=== PATIENT | male | born 1985 | race Caucasian/White ===

== ENCOUNTER 2018-10-06 09:52 | Emergency (ER) | payer SELFPAY ==
[~2018-10-06] VITALS: Ht 170.2 cm; Wt 95.0 kg
[2018-10-06] MEDS ORDERED: HYDROCODONE/ACETAMINOPHEN 5/325MG TABLET PO ONE (10:45)
[2018-10-06] MEDS ORDERED: ONDANSETRON 4MG ODT PO ONE (10:45)
[2018-10-06 11:52] VITALS: BP 102/63
== END 2018-10-06 12:06 | disposition home or self-care (01) ==
LOC: ER 09:52
DX: S20.20XA Contusion of thorax, unspecified, initial encounter (principal); R07.89 Other chest pain; F12.10 Cannabis abuse, uncomplicated; W51.XXXA Accidental striking against or bumped into by another person, initial encounter; Y93.66 Activity, soccer; Y92.89 Other specified places as the place of occurrence of the external cause
CPT/HCPCS: 71101; 99283; Q0162